=== PATIENT | female | born 1965 | race Caucasian/White ===

== ENCOUNTER 2020-08-10 15:00 | Emergency (ER) | payer OTHER ==
[2020-08-10 15:09] VITALS: BP 192/83
--- NOTE | 2020-08-10 15:12 | ED Physician Documentation ---
PD HPI HEAD INJURY - Stated complaint Stated Complaint: HEAD INJURY/NECK PX - Chief complaint Chief Complaint: Trauma Hd/Nk - History obtained from History obtained from: Patient - History of Present Illness Mechanism of head injury: Fell (Walking her dog and was on a slight incline when the leash came behind her legs and pulled her legs out, causing her to fall backward. Impact on grass of the head with some neck pain as well.) [place] Location of injury: Back Quality of pain: Dull (mild dull headache posterior at impact. No general headache.) Associated symptoms: Nausea / vomiting (mild nausea on ride to ER. no vomiting. No nuasea now.), Neck pain (some pain muscles upper neck.). No: LOC, AMS, Paresthesias Symptoms worsen with: Movement Contributing factors: No: Anticoagulated, Intoxicated Similar symptoms before: Diagnosis (had harder fall with head injury and subdural bleed, concussion, and prolonged TBI symptoms for few months (headache, dizzy, delayed thought process), so concerned with fall today, though symptoms mild right now.) Recently seen: Not recently seen Review of Systems Constitutional: denies: Fever, Chills Eyes: denies: Loss of vision, Decreased vision, Photophobia Nose: denies: Rhinorrhea / runny nose, Congestion Throat: denies: Sore throat Respiratory: denies: Cough Skin: denies: Abrasion (s), Laceration (s) Neurologic: denies: Focal weakness, Numbness, Syncope, Confused, Altered mental status, LOC PD PAST MEDICAL HISTORY - Past Medical History Cardiovascular: None Respiratory: None Neuro: Other (concussion and subdural without surgery in 2019. Several months of symptoms followed. No ongoing migraines, seizures, nor TBI symptoms. ) Endocrine/Autoimmune: None - Allergies Allergies/Adverse Reactions: Allergies Allergy/AdvReac Type Severity Reaction Status Date / Time No Known Drug Allergies Allergy Verified 08/10/20 15:04 PD ED PE NORMAL - Vitals Vital signs reviewed: Yes - General General: Alert and oriented X 3, No acute distress (not in much pain, but is seems concerned.), Well developed/nourished - HEENT HEENT: Atraumatic (no swelling. There is mild tenderness in occiput. ), PERRL, EOMI - Neck Neck: Supple, no meningeal sign, No bony TTP (tender to lateral muscles in upper neck. No bony tenderness per se. ROM of the neck with stiffness but no sharp pain. 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 I feel her symptoms are mild and would not necessitate imaging for head. Neck exam is not bony/midline tenderness and feel she can screen by N[employer] rules without imaging. Cautioned about return indications. ), d/w patient Departure - Departure Disposition: 01 Home, Self Care Clinical Impression: Fall from slip, trip, or stumble Qualifiers: Encounter type: initial encounter Qualified Code(s): W01.0XXA - Fall on same level from slipping, tripping and stumbling without subsequent striking against object, initial encounter Head contusion Qualifiers: Encounter type: initial encounter Contusion of head detail: scalp Qualified Code(s): S00.03XA - Contusion of scalp, initial encounter Neck muscle strain Qualifiers: Encounter type: initial encounter Qualified Code(s): S16.1XXA - Strain of muscle, fascia and tendon at neck level, initial encounter Condition: Stable Record reviewed to determine appropriate education?: Yes Instructions: ED Head Injury Closed, ED Sprain Strain Neck Comments: Heat or cold depending upon what feels better as there can be components of either inflammation or spasm. Tylenol or ibuprofen if needed for pains. Gentle stretching and range of motion of the neck. Light activity today and tomorrow based on how you are feeling. Progress activity to normal over the next couple of days if feeling well. Recheck if persistent headache or pains beyond a few days and return or seek care at an ER if you have increasing headache, repetitive vomiting, confusion, blurred vision, or other concerns. Discharge Date/Time: 08/10/20 15:56
== END 2020-08-10 15:56 | disposition home or self-care (01) ==
LOC: ED 15:00
DX: S00.03XA Contusion of scalp, initial encounter (principal); S16.1XXA Strain of muscle, fascia and tendon at neck level, initial encounter; W01.0XXA Fall on same level from slipping, tripping and stumbling without subsequent striking against object, initial encounter; Y93.K1 Activity, walking an animal; Y92.830 Public park as the place of occurrence of the external cause; Z87.820 Personal history of traumatic brain injury
CPT/HCPCS: 99281; 99282